=== PATIENT | male | born 1995 | race Caucasian/White ===

== ENCOUNTER → 2019-12-13 | Outpatient (CLI) | payer OTHER ==
--- NOTE | 2019-12-13 09:25 | RAD ---
EXAM: Bilateral ankles, 3 views. HISTORY: Pain. COMPARISON: None. FINDINGS: 3 views of the ankles are obtained. There is no acute fracture, dislocation or subluxation. The ankle mortise these are intact. No osteochondral lesion is seen. There are tiny corticated ossicles inferior to the left medial malleolus, likely due to sequela of remote injury. There are tiny plantar spurs. There is a bone island within the distal left tibial metaphysis. IMPRESSION: 1. No acute osseous finding. 2. Tiny corticated ossicles inferior to the left medial malleolus, likely due to the sequela of remote injury. Electronically signed by: Cheyenne Osorio MD (12/13/2019 9:22 AM) [id number]
== END ==
LOC: DXRAD 08:39
PROVIDERS: ATTEND Physician Assistant
DX: M25.571 Pain in right ankle and joints of right foot (principal); M25.572 Pain in left ankle and joints of left foot
CPT/HCPCS: 73610

== ENCOUNTER 2021-03-25 19:05 | Emergency (ER) | payer OTHER ==
[~2021-03-25] VITALS: Ht 175.3 cm; Wt 113.6 kg
--- NOTE | 2021-03-25 20:23 | PHYS DOC ---
Past History Past Medical History: Anxiety General Adult EDM: Chief Complaint: SUICIDAL IDEATION HPI: HPI: ".. I just need to talk with someone.. I am having very depressed thoughts.. anxiety.. it got really bad over my miscarjohanny... 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 This is the anniversary of his near [place]. Patient has been following with a counselor through [facility]. However could not get into see his therapist with this recent acute exacerbation. 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 Patient requesting to speak to someone today. Patient has no access to firearms. Has no specific plan for self injury. Patient normally healthy. Up-to-date vaccinations. No recent travel. No legal issues. No use of alcohol in excess. Review of Systems: Review of Systems: Constitutional: Denies fever or chills Eyes: Denies change in visual acuity HENT: Denies nasal congestion or sore throat Respiratory: Denies cough or shortness of breath Cardiovascular: Denies chest pain or edema GI: Denies abdominal pain, nausea, vomiting, bloody stools or diarrhea : Denies dysuria Musculoskeletal: Denies back pain or joint pain Integument: Denies rash Neurologic: Denies headache, focal weakness or sensory changes Endocrine: Denies polyuria or polydipsia Lymphatic: Denies swollen glands Psychiatric: Complains of depression or anxiety Family History: Family History: Noncontributory to presentation Current Medications: Current Meds: See nursing for home meds Allergies: Allergies: No known drug allergies Physical Exam: PE: Constitutional: Well developed, well nourished, reports emotional distress, non- toxic appearance. [] HENT: Normocephalic, atraumatic, bilateral external ears normal, oropharynx m oist, no oral exudates, nose normal. [] Eyes: PERRLA, EOMI, conjunctiva normal, no discharge. [] Neck: Normal range of motion, no tenderness, supple, no stridor. [] Cardiovascular:Heart rate regular rhythm, no murmur [] Lungs & Thorax: Bilateral breath sounds equal at apex auscultation [] Abdomen: Bowel sounds normal, soft, no tenderness, no masses, no pulsatile masses. [] Skin: Warm, dry, no erythema, no rash. [] Back: No tenderness, no CVA tenderness. [] Extremities: No tenderness, no cyanosis, no clubbing, ROM intact, no edema. [] Neurologic: Alert and oriented X 3, normal motor function, normal sensory function, no focal deficits noted. [] Psychologic: Affect anxious, judgement normal, mood depressed. EKG: EKG: [] Radiology/Procedures: Radiology/Procedures: [] Heart Score: C/O Chest Pain: N/A Risk Factors: Risk Factors: DM, Current or recent (<one month) smoker, HTN, HLP, family history of CAD, obesity. Risk Scores: Score 0 - 3: 2.5% MACE over next 6 weeks - Discharge Home Score 4 - 6: 20.3% MACE over next 6 weeks - Admit for Clinical Observation Score 7 - 10: 72.7% MACE over next 6 weeks - Early Invasive Strategies Course & Med Decision Making: Course & Med Decision Making Pertinent Labs and Imaging studies reviewed. (See chart for details) See Psych. report. Graham BSN Safety plan. Pt.to keep followup as planned with counseling services. Return if any concerns. Impression: 1. Anxiety 2. Depression [] Dragon Disclaimer: Dragon Disclaimer: This electronic medical record was generated, in whole or in part, using a voice recognition dictation system. Departure Departure: Referrals: LORRAINE MULLEN MD (PCP) Eliecer Disclaimer This chart was dictated in whole or in part using Voice Recognition software in a busy, high-work load, and often noisy Emergency Department environment. It may contain unintended and wholly unrecognized errors or omissions. CAS ALEXANDRE MD Mar 25, 2021 20:23
[2021-03-25 21:01] LABS: BASO % 0 % (0-3); EOS # 0.3 x10^3/uL (0.0-0.7); EOS % 3 % (0-3); HEMATOCRIT 46.9 % (39.0-53.0); HEMOGLOBIN 16.5 g/dL (13.0-17.5); LYMPH % 24 % (24-48); MEAN CORPUSCULAR HEMOGLOBIN 29 pg (25-35); MEAN CORPUSCULAR HGB CONC 35 g/dL (31-37); MEAN CORPUSCULAR VOLUME 82 fL (79-100); MONO % 12 % (0-9); NEUT # 5.2 x10^3uL (1.8-7.7); NEUT % 61 % (31-73); PLATELET COUNT 231 x10^3/uL (140-400); RED BLOOD COUNT 5.75 x10^6/uL (4.30-5.70); RED CELL DISTRIBUTION WIDTH 13.1 % (11.5-14.5); WHITE BLOOD COUNT 8.5 x10^3/uL (4.0-11.0)
[2021-03-25 21:04] LABS: BARBITURATES NEG (NEG); BENZODIAZEPINES NEG (NEG); CANNABINOIDS NEG (NEG); COCAINE NEG (NEG); METHADONE NEG (NEG); OPIATES NEG (NEG); PHENCYCLIDINE NEG (NEG)
[2021-03-25 21:05] LABS: AMPHETAMINE/METHAMPHETAMINE NEG (NEG)
[2021-03-25 21:08] LABS: CALCIUM 8.9 mg/dL (8.5-10.1); CREATININE 1.2 mg/dL (0.7-1.3); GFR 74.4; MAGNESIUM 2.2 mg/dL (1.8-2.4); POTASSIUM 3.7 mmol/L (3.5-5.1)
[2021-03-25 21:10] LABS: ETHANOL < 10 mg/dL (0-10); SALIC < 2.8 mg/dL (2.8-20.0)
[2021-03-25 21:11] LABS: BILIRUBIN,URINE NEG (NEG); CLARITY,URINE CLEAR; COLOR,URINE YELLOW; GLUCOSE,URINE NEG (NEG)
[2021-03-25 21:12] LABS: NITRITE,URINE NEG (NEG)
[2021-03-25 21:15] LABS: BACTERIA,URINE 0 /HPF (0-FEW); SQUAMOUS EPITHELIAL CELL,UR OCC /LPF; WBC,URINE OCC /HPF (0-4)
[2021-03-25 21:22] LABS: ACETAMIN < 2.0 mcg/mL (10-30)
[2021-03-25 23:45] VITALS: BP 132/92
--- NOTE | 2021-03-27 22:04 | EKG ---
[address] [address] Test Date: 2021-03-25 Test Time: 21:06:13 Pat Name: MYKE BARRERA Department: Room: Gender: M Store Person: BRY : 1995 Requested By: CAS ALEXANDRE Order Number: [id number] Reading MD: Measurements Intervals [place] Rate: 88 P: 30 NV: 148 QRS: 9 QRSD: 110 T: 28 QT: 334 QTc: 407 Interpretive Statements SINUS RHYTHM NORMAL ECG RI6.02 No previous ECG available for comparison
== END 2021-03-25 23:45 | disposition home or self-care (01) ==
LOC: ER 19:05
DX: F41.9 Anxiety disorder, unspecified (principal); F32.9 Major depressive disorder, single episode, unspecified
CPT/HCPCS: 36415; 80048; 80307; 80329; 81001; 83735; 84443; 85025; 93005; 99284; G0480